=== PATIENT | female | born 1980 | race African-American/Black ===

== ENCOUNTER 2020-05-05 11:55 | Day surgery (SDC) | payer MEDICAID ==
[~2020-05-05 11:55] MED LIST: LACTATED RINGERS 1000 ML IV PRN
[2020-05-05] MEDS ORDERED: LIDOCAINE 2% INJ-PF (100 MG/5 ML) SYRINGE ONE (13:41)
[2020-05-05] MEDS ORDERED: PROPOFOL INJ 200 MG/20 ML VIAL IV ONE ×2 (13:41→15:40)
--- NOTE | 2020-05-05 15:16 | Operative Report ---
Operative Report DATE OF SURGERY: 05/05/20 Operative Report: Pre-op diagnosis: History of severe esophagitis Post-op diagnosis: Grade a esophagitis Surgery: Esophagogastroduodenoscopy with biopsy Medications: As per anesthesia Tissue removed: Antral biopsy for pathology Procedure: After informed consent obtained from patient, the throat was sprayed with Hurricane and conscious sedation was achieved. The upper endoscope was inserted into the esophagus under direct vision and advanced into the stomach. The duodenum was entered and examined to the second part. Endoscope was then slowly pulled out of the patient as the mucosa was examined into details. Patient tolerated procedure well. Findings Esophagus: Small erosion was noted consistent with grade a esophagitis. The Z line was 35 cm. Antrum: Normal Body: Normal Fundus: Normal Duodenum first part: Normal Duodenum second part: Normal Plan: Await pathology. Will adjust her PPI once I know exactly what she is taking. OPERATION: .
[2020-05-05 15:46] VITALS: BP 142/80
== END 2020-05-05 15:46 | disposition home or self-care (01) ==
LOC: END 11:55
PROVIDERS: ATTEND Internal Medicine Gastroenterology
DX: K29.50 Unspecified chronic gastritis without bleeding (principal); K31.84 Gastroparesis; I10 Essential (primary) hypertension; K21.9 Gastro-esophageal reflux disease without esophagitis; E11.9 Type 2 diabetes mellitus without complications; D64.9 Anemia, unspecified; M13.80 Other specified arthritis, unspecified site; Z79.1 Long term (current) use of non-steroidal anti-inflammatories (NSAID); Z79.84 Long term (current) use of oral hypoglycemic drugs; Z79.891 Long term (current) use of opiate analgesic; Z79.899 Other long term (current) drug therapy; Z03.818 Encounter for observation for suspected exposure to other biological agents ruled out
CPT/HCPCS: 43239; 82962; 87635; 81025; 88342 ×2; 88305 ×2; 00731; J2001; J2704; C9803; 731